=== PATIENT | female | born 1950 | race African-American/Black ===

== ENCOUNTER → 2020-04-02 | Emergency (ER) | payer OTHER ==
[~2020-04-02] VITALS: Ht 124.5 cm; Wt 24.5 kg
[~2020-04-02] MED LIST: NITROFURANTOIN100 M2 ORAL
[2020-04-02 11:25] VITALS: BP 153/81
--- NOTE | 2020-04-02 11:34 | Emergency Room Report ---
History of Present Illness General Chief Complaint: Female Urogenital Problems Source: Family Member Present Illness HPI Disclaimer: Please note that this report is being documented using [employer] technology. This can lead to erroneous entry secondary to incorrect interpretation by the dictating instrument. HPI: 70-year-old female history of developmental delay presents for evaluation of vaginal discharge. Patient is nonverbal presents with her cousin who is her legal guardian. Cousin states patient has been having green/yellow vaginal discharge for the past 2 weeks. No obvious bleeding. Had an appointment to see [facility] but pelvic exam could not be performed during that visit due to patient agitation. Cousin denies fever, vomiting, diarrhea, rash other changes in her health. States this happened once 5 months ago and was resolved with antibiotic medications. PMH: Developmental delay, nonverbal PSH: Reviewed Allergies: Reviewed Social Hx: None reported Allergies: Coded Allergies: No Known Allergies (Unverified , 04/02/20) COVID-19 Screening Contact w/high risk pt: No Experienced COVID-19 symptoms?: No COVID-19 Testing performed TECHNICAL PROPOSAL WRITER: No Nursing Documentation-PMH Past Medical History: No History, Except For Review of Systems All Other Systems: limited - Unable to obtain from patient due to nonverbal status Physical Exam Vital Signs Date Time Temp Pulse Resp B/P (MAP) Pulse Ox O2 Delivery O2 Flow Rate FiO2 04/02/20 11:18 97.9 67 20 153/81 (105) 100 Room Air General: Awake and seemingly alert, no acute distress HEENT: NC/AT. EOMI. Resp: Normal work of breathing Abdomen: Soft, nontender, nondistended. : Normal-appearing external genitalia. There is a mole on the left lower labia. No bleeding, no erythema does not appear tender. Mild yellow purulent material in the vagina. Minimal bleeding. Skin: Intact. No abrasions, laceration or rash over the exposed skin MSK: Normal tone and bulk. Moving all extremities. No obvious deformity. Neuro: Awake and seems alert. Communicates nonverbally and follows commands. Nonverbal. Medical Decision Making Diagnostic Impression: Primary Impression: UTI (urinary tract infection) ER Course Is a 70-year-old female with history of developmental delay brought in by car shunter for evaluation of vaginal discharge. Differential includes is not limited to UTI, BV, endometriosis, PID, Trichomonas, candidiasis among others. Obtain urine with straight catheterization. Urinalysis shows 3+ leukocyte esterase with innumerable white cells, red cells but only few bacteria. No significant findings on wet mount. Will be treated for urinary tract infection and discharged to follow-up with her PMD. Encouraged her to obtain outpatient imaging her doctor as already ordered. She is otherwise well-appearing no signs of systemic infection. Follow-up on an outpatient basis. Instructed to return with new or worsening symptoms. Outreach Coordinator understands and agrees with the treatment plan. Last Vital Signs Date Time Temp Pulse Resp B/P (MAP) Pulse Ox O2 Delivery O2 Flow Rate FiO2 04/02/20 11:25 97.9 71 20 153/81 100 Room Air Disposition: HOME, SELF-CARE Condition: Stable Scripts Nitrofurantoin Monohyd/M-Cryst* (MACROBID 100 MG*) 100 Mg Capsule 100 MG ORAL EVERY 12 HOURS for 10 Days, #20 CAP Prov: Álvaro Salomon MD 04/02/20 Álvaro Salomon MD Apr 02, 2020 11:34
--- NOTE | 2020-04-02 11:45 | NUR ---
ED Nurse Note: obtained urine via staright cath, family member at bedside.
[2020-04-02 11:50] LABS: APPEARANCE,URINE CLOUDY; BILIRUBIN, URINE NEGATIVE (NEGATIVE); GLUCOSE, URINE (UA) NEGATIVE (NEGATIVE); KETONES,URINE NEGATIVE (NEGATIVE); LEUKOCYTE ESTERASE ,URINE 3+ (NEGATIVE); NITRITE,URINE NEGATIVE (NEGATIVE); PH,URINE 5 (4.5-8.0); PROTEIN,URINE 2+ (NEGATIVE); UROBILINOGEN,URINE NORMAL MG/DL (0.0-1.0)
[2020-04-02 11:51] LABS: COLOR,URINE YELLOW
[2020-04-02 13:10] VITALS: BP 142/77
--- NOTE | 2020-04-02 13:10 | NUR ---
ED Nurse Note: Pt cleared by ERMD for discharge. DC instructions/prescription was given and explained to pt and verbalized understanding of teachings. All medical deviecs such as ID band removed. Pt is AAO x4, ambulatory and left with all personal belongings.
== END | disposition home or self-care (01) ==
LOC: EMR 11:41
DX: N39.0 Urinary tract infection, site not specified (principal); R62.50 Unspecified lack of expected normal physiological development in childhood
CPT/HCPCS: 81003; 87086; 87210; 99283